=== PATIENT | female | born 1955 | race Caucasian/White ===

== ENCOUNTER 2016-12-20 18:07 | Inpatient (IN) | payer OTHER ==
[~2016-12-20] VITALS: Ht 157.5 cm; Wt 100.2 kg
[~2016-12-20 18:07] MED LIST: CARV-39 PO; GLYB5TAB3 PO; HYDR-3240 PO; LORSARTAN PO; LOSA1TAB16 PO; OXYC1TAB9 PO; SITA1TBM7 PO; SULF1TAB24 PO; TIZA2CAP PO; Will bring list DOS; [UNRECOGNIZED DRUG - OTHER]; [UNRECOGNIZED DRUG - OTHER] PO; [UNRECOGNIZED DRUG - OTHER] PO; [UNRECOGNIZED DRUG - OTHER] PO
[2016-12-20 19:07] LABS: HEMOGLOBIN 10.5 g/dL (11.7-16.4)
[2016-12-20 19:21] LABS: IS PT STATUS REG ER OR PRE ER? YES
[2016-12-20] MEDS ORDERED: FURO-92 PO (19:31)
[2016-12-20] MEDS ORDERED: GLYB5TAB3 PO (19:31)
[2016-12-20] MEDS ORDERED: LOSA100T6 PO (19:31)
[2016-12-20] MEDS ORDERED: [UNRECOGNIZED DRUG - CODE] PO (19:31)
[2016-12-20] MEDS ORDERED: SODI650T PO (19:31)
[2016-12-20 19:59] LABS: BLOOD UREA NITROGEN 50 mg/dL (7-18)
[2016-12-20] MEDS ORDERED: SODIUM CHLORIDE 0.9% 1,000 ML IV ONE (20:53)
[2016-12-20] MEDS ORDERED: ONDANSETRON 2MG/ML, 2ML IVPush PRN (21:00)
[2016-12-20 22:21] VITALS: BP 160/67
[2016-12-20] MEDS ORDERED: FUROSEMIDE 40 MG/4 ML IV ONE (22:30)
[2016-12-20] MEDS: GlyBURIDE 5 MG TABLET PO SCH (22:30)
[2016-12-20] MEDS ORDERED: GUAIFENESIN/DM 200-20MG, 10ML UDC PO PRN (22:30)
[2016-12-20] MEDS ORDERED: MORPHINE SULFATE 4 MG/ML, 1ML IVPush PRN (22:30)
[2016-12-20] MEDS ORDERED: LABETALOL 5MG/ML, 20ML IV PRN (22:30)
[2016-12-20] MEDS: INSULIN ASPART 100 UNITS/ML, PEN SQ-INSULIN SCH (22:30)
[2016-12-21] MEDS: HEPARIN 5,000 UNITS/ML, 1ML SQ SCH ×3 (00:17→16:05)
[2016-12-21] MEDS: SODIUM BICARBONATE 650 MG TABLET PO SCH ×3 (00:22→21:28)
[2016-12-21] MEDS: CARVEDILOL 25 MG TABLET PO SCH ×3 (00:23→21:27)
[2016-12-21] MEDS: FAMOTIDINE 20 MG TABLET PO SCH ×2 (00:23→07:49)
[2016-12-21 01:23] VITALS: BP 159/70
[2016-12-21 06:20] LABS: HEMOGLOBIN 8.9 g/dL (11.7-16.4)
[2016-12-21 06:29] LABS: BLOOD UREA NITROGEN 51 mg/dL (7-18)
[2016-12-21] MEDS: INSULIN ASPART 100 UNITS/ML, PEN SQ-INSULIN SCH ×4 (07:00→21:00)
[2016-12-21 07:45] VITALS: BP 159/73
[2016-12-21] MEDS: LOSARTAN 50MG TABLET PO SCH (07:48)
[2016-12-21] MEDS: GlyBURIDE 5 MG TABLET PO SCH ×2 (07:49→21:27)
[2016-12-21] MEDS: AMLODIPINE 5 MG TABLET PO SCH (07:49)
[2016-12-21] MEDS: HYDROcodone/APAP 5/325 TABLET PO PRN (07:57)
[2016-12-21] MEDS ORDERED: FUROSEMIDE 40 MG TABLET PO SCH (09:00)
[2016-12-21] MEDS: ONDANSETRON 2MG/ML, 2ML IVP PRN (11:30)
[2016-12-21 11:37] VITALS: BP 159/79
[2016-12-21 13:54] VITALS: BP 148/80
[2016-12-21 15:14] LABS: PTH INTACT INTERPRETATION ** Comment **
[2016-12-21 15:39] LABS: PARATHYROID HORMONE INTACT 274.2 pg/mL (14-72)
[2016-12-21] MEDS: ACETAMINOPHEN 325 MG TABLET PO PRN (16:04)
[2016-12-21 20:01] VITALS: BP 149/73
[2016-12-21] MEDS: ATORVASTATIN 20 MG TABLET PO SCH (21:28)
[2016-12-22 02:10] VITALS: BP 156/67
[2016-12-22 05:42] LABS: HEMOGLOBIN 8.8 g/dL (11.7-16.4)
[2016-12-22 05:55] LABS: ASPARTATE AMINO TRANSFERASE 8 U/L (15-37); BLOOD UREA NITROGEN 53 mg/dL (7-18)
[2016-12-22] MEDS: INSULIN ASPART 100 UNITS/ML, PEN SQ-INSULIN SCH ×4 (07:00→20:18)
[2016-12-22 07:47] VITALS: BP 146/64
[2016-12-22] MEDS: GlyBURIDE 5 MG TABLET PO SCH (09:00)
[2016-12-22] MEDS ORDERED: CIMETIDINE 200 MG TABLET PO SCH (09:00)
[2016-12-22] MEDS: LOSARTAN 50MG TABLET PO SCH (09:31)
[2016-12-22] MEDS: CARVEDILOL 25 MG TABLET PO SCH ×2 (09:31→20:16)
[2016-12-22] MEDS: HEPARIN 5,000 UNITS/ML, 1ML SQ SCH ×3 (09:31→17:22)
[2016-12-22] MEDS: SODIUM BICARBONATE 650 MG TABLET PO SCH ×2 (09:32→20:15)
[2016-12-22] MEDS: AMLODIPINE 5 MG TABLET PO SCH (09:32)
[2016-12-22] MEDS: FUROSEMIDE 80 MG TABLET PO SCH (09:32)
[2016-12-22] MEDS: ACETAMINOPHEN 325 MG TABLET PO PRN (09:52)
[2016-12-22 13:15] VITALS: BP 146/74
[2016-12-22] MEDS ORDERED: DARBEPOETIN 60 MCG/ML SQ SCH (13:30)
[2016-12-22] MEDS: ERGOCALCIFEROL 50,000 UNIT CAPSULE PO SCH (16:20)
[2016-12-22] MEDS: IRON SUCROSE COMPLEX 100MG/5ML IV SCH (16:24)
[2016-12-22] MEDS: CIMETIDINE 400 MG TABLET PO SCH (17:22)
[2016-12-22] MEDS: ATORVASTATIN 20 MG TABLET PO SCH (20:16)
[2016-12-22 20:19] VITALS: BP 134/70
[2016-12-23 02:45] VITALS: BP 151/73
[2016-12-23 05:31] LABS: HEMOGLOBIN 8.7 g/dL (11.7-16.4)
[2016-12-23 05:46] LABS: BLOOD UREA NITROGEN 58 mg/dL (7-18)
[2016-12-23] MEDS: CIMETIDINE 400 MG TABLET PO SCH (06:00)
[2016-12-23] MEDS: INSULIN ASPART 100 UNITS/ML, PEN SQ-INSULIN SCH ×4 (07:00→22:13)
[2016-12-23 08:02] VITALS: BP 160/69
[2016-12-23] MEDS: CARVEDILOL 25 MG TABLET PO SCH ×2 (08:28→22:12)
[2016-12-23] MEDS: HEPARIN 5,000 UNITS/ML, 1ML SQ SCH ×3 (08:28→17:26)
[2016-12-23] MEDS: AMLODIPINE 5 MG TABLET PO SCH (08:29)
[2016-12-23] MEDS: MULTIVITAMIN 1 TABLET PO SCH (08:29)
[2016-12-23] MEDS: SODIUM BICARBONATE 650 MG TABLET PO SCH ×2 (08:29→22:12)
[2016-12-23] MEDS: CALCITRIOL 0.25 MCG CAPSULE PO SCH (08:30)
[2016-12-23] MEDS: FUROSEMIDE 80 MG TABLET PO SCH (08:30)
[2016-12-23] MEDS: LOSARTAN 50MG TABLET PO SCH (08:30)
[2016-12-23] MEDS: ATORVASTATIN 20 MG TABLET PO SCH (08:30)
[2016-12-23] MEDS: HYDROcodone/APAP 5/325 TABLET PO PRN (11:59)
[2016-12-23 13:06] VITALS: BP 159/73
[2016-12-23 14:07] LABS: UR ALBUMIN 54.3 % (.); UR ALPHA-2-GLOBULIN 10.3 % (.); UR BETA GLOBULIN 14.3 % (.); UR GAMMA GLOBULIN 17.1 % (.); UR M-SPIKE % Not Observed % (Not Observed)
[2016-12-23 14:07] LABS: ALBUMIN 2.8 g/dL (2.9-4.4); ALPHA-1-GLOBULIN 0.2 g/dL (0.0-0.4); GAMMA GLOBULIN 0.8 g/dL (0.4-1.8); PROTEIN TOTAL 5.5 g/dL (6.0-8.5)
[2016-12-23] MEDS: IRON SUCROSE COMPLEX 100MG/5ML IV SCH (14:15)
[2016-12-23 17:36] LABS: CREATININE CLEARANCE,URINE 8.1 (70.0-140.0)
[2016-12-23 18:46] VITALS: BP 158/83
[2016-12-23] MEDS: ACETAMINOPHEN 325 MG TABLET PO PRN (22:17)
[2016-12-24 05:37] VITALS: BP_SYST 148; BP_SYST 165; BP_DIAS 73; BP_DIAS 90
[2016-12-24 06:12] LABS: HEMOGLOBIN 9.6 g/dL (11.7-16.4)
[2016-12-24 06:23] LABS: BLOOD UREA NITROGEN 56 mg/dL (7-18)
[2016-12-24] MEDS: INSULIN ASPART 100 UNITS/ML, PEN SQ-INSULIN SCH ×4 (07:00→20:47)
[2016-12-24 08:17] VITALS: BP 160/73
[2016-12-24] MEDS: SODIUM BICARBONATE 650 MG TABLET PO SCH ×2 (09:12→20:46)
[2016-12-24] MEDS: CALCITRIOL 0.25 MCG CAPSULE PO SCH (09:12)
[2016-12-24] MEDS: CARVEDILOL 25 MG TABLET PO SCH ×2 (09:13→20:46)
[2016-12-24] MEDS: ATORVASTATIN 20 MG TABLET PO SCH (09:13)
[2016-12-24] MEDS: AMLODIPINE 5 MG TABLET PO SCH (09:13)
[2016-12-24] MEDS: LOSARTAN 50MG TABLET PO SCH (09:13)
[2016-12-24] MEDS: FUROSEMIDE 80 MG TABLET PO SCH (09:13)
[2016-12-24] MEDS: MULTIVITAMIN 1 TABLET PO SCH (09:13)
[2016-12-24] MEDS: HEPARIN 5,000 UNITS/ML, 1ML SQ SCH ×4 (09:14→23:52)
[2016-12-24] MEDS: IRON SUCROSE COMPLEX 100MG/5ML IV SCH (13:30)
[2016-12-24 14:09] VITALS: BP 155/80
[2016-12-24 20:05] VITALS: BP 164/72
[2016-12-24] MEDS: HYDROcodone/APAP 5/325 TABLET PO PRN ×2 (20:46→23:56)
[2016-12-25 05:08] VITALS: BP 150/62
[2016-12-25 05:17] LABS: HEMOGLOBIN 9.4 g/dL (11.7-16.4)
[2016-12-25 05:28] LABS: BLOOD UREA NITROGEN 65 mg/dL (7-18)
[2016-12-25] MEDS: INSULIN ASPART 100 UNITS/ML, PEN SQ-INSULIN SCH ×4 (05:41→20:38)
[2016-12-25] MEDS: HEPARIN 5,000 UNITS/ML, 1ML SQ SCH ×2 (08:00→17:06)
[2016-12-25] MEDS ORDERED: GLYCOPYRROLATE 0.2MG/1ML ONE (08:30)
[2016-12-25] MEDS ORDERED: ONDANSETRON 2MG/ML, 2ML ONE (08:30)
[2016-12-25] MEDS ORDERED: CEFAZOLIN 1,000 MG ONE (08:30)
[2016-12-25] MEDS ORDERED: NEOSTIGMINE 1 MG/ML, 10ML ONE (08:30)
[2016-12-25] MEDS ORDERED: ROCURONIUM 10 MG/ML ONE (08:30)
[2016-12-25] MEDS ORDERED: PROPOFOL 10 MG/ML, 20ML ONE (08:30)
[2016-12-25] MEDS: MULTIVITAMIN 1 TABLET PO SCH (09:00)
[2016-12-25] MEDS: FUROSEMIDE 80 MG TABLET PO SCH (09:00)
[2016-12-25] MEDS: LOSARTAN 50MG TABLET PO SCH (09:00)
[2016-12-25] MEDS: AMLODIPINE 5 MG TABLET PO SCH (09:00)
[2016-12-25] MEDS: CARVEDILOL 25 MG TABLET PO SCH ×2 (09:00→20:38)
[2016-12-25] MEDS: SODIUM BICARBONATE 650 MG TABLET PO SCH ×2 (09:00→20:39)
[2016-12-25] MEDS: CALCITRIOL 0.25 MCG CAPSULE PO SCH (09:00)
[2016-12-25] MEDS ORDERED: hydrALAzine 20 MG/ML, 1ML IV PRN (11:00)
[2016-12-25] MEDS ORDERED: HYDROmorphone 1 MG/ML, 1ML IV PRN (11:00)
[2016-12-25] MEDS ORDERED: PROMETHAZINE 25 MG/ML, 1ML IV PRN (11:00)
[2016-12-25] MEDS ORDERED: ONDANSETRON 2MG/ML, 2ML IVPush PRN (11:00)
[2016-12-25] MEDS ORDERED: OXYcodone 5 MG/5 ML ORAL.SOL UDC PO PRN (11:00)
[2016-12-25] MEDS ORDERED: MEPERIDINE/PF 25MG/0.5ML IVPush PRN (11:00)
[2016-12-25] MEDS ORDERED: FENTANYL PF 100 MCG/2ML IV PRN (11:00)
[2016-12-25] MEDS ORDERED: LABETALOL 5MG/ML, 20ML IV PRN (11:00)
[2016-12-25] MEDS: ONDANSETRON 2MG/ML, 2ML IVP PRN ×2 (11:25→17:05)
[2016-12-25 13:00] VITALS: BP 127/75
[2016-12-25] MEDS: IRON SUCROSE COMPLEX 100MG/5ML IV SCH (17:05)
[2016-12-25 18:48] VITALS: BP 134/76
[2016-12-25 18:52] VITALS: BP 133/60
[2016-12-25 20:00] VITALS: BP 126/72
[2016-12-25] MEDS: ATORVASTATIN 20 MG TABLET PO SCH (20:38)
[2016-12-25] MEDS: TRAZODONE 50MG TABLET PO PRN (20:39)
[2016-12-26] MEDS: HEPARIN 5,000 UNITS/ML, 1ML SQ SCH ×3 (00:21→16:46)
[2016-12-26] MEDS: HYDROcodone/APAP 5/325 TABLET PO PRN (01:33)
[2016-12-26 02:30] VITALS: BP 130/75
[2016-12-26 04:50] VITALS: BP 139/66
[2016-12-26] MEDS: INSULIN ASPART 100 UNITS/ML, PEN SQ-INSULIN SCH ×4 (07:00→20:24)
[2016-12-26 07:11] VITALS: BP 123/56
[2016-12-26] MEDS: ONDANSETRON 2MG/ML, 2ML IVP PRN ×2 (08:28→12:14)
[2016-12-26] MEDS: CARVEDILOL 25 MG TABLET PO SCH ×2 (12:36→20:39)
[2016-12-26] MEDS: FUROSEMIDE 80 MG TABLET PO SCH (12:38)
[2016-12-26] MEDS: LOSARTAN 50MG TABLET PO SCH (12:38)
[2016-12-26] MEDS: MULTIVITAMIN 1 TABLET PO SCH (12:39)
[2016-12-26] MEDS: CALCITRIOL 0.25 MCG CAPSULE PO SCH (12:39)
[2016-12-26] MEDS: SODIUM BICARBONATE 650 MG TABLET PO SCH ×2 (12:39→20:39)
[2016-12-26] MEDS: AMLODIPINE 5 MG TABLET PO SCH (12:39)
[2016-12-26] MEDS: IRON SUCROSE COMPLEX 100MG/5ML IV SCH (13:47)
[2016-12-26 14:35] VITALS: BP 141/56
[2016-12-26 20:17] VITALS: BP 172/69
[2016-12-26] MEDS: ATORVASTATIN 20 MG TABLET PO SCH (20:39)
[2016-12-26] MEDS: TRAZODONE 50MG TABLET PO PRN (20:39)
[2016-12-27] MEDS: HEPARIN 5,000 UNITS/ML, 1ML SQ SCH ×4 (00:38→23:19)
[2016-12-27 00:39] VITALS: BP 158/74
[2016-12-27 05:43] LABS: BLOOD UREA NITROGEN 25 mg/dL (7-18)
[2016-12-27] MEDS: INSULIN ASPART 100 UNITS/ML, PEN SQ-INSULIN SCH ×4 (07:00→20:23)
[2016-12-27 07:06] VITALS: BP 156/54
[2016-12-27] MEDS: CARVEDILOL 25 MG TABLET PO SCH ×2 (08:12→20:22)
[2016-12-27] MEDS: MULTIVITAMIN 1 TABLET PO SCH (08:12)
[2016-12-27] MEDS: CALCITRIOL 0.25 MCG CAPSULE PO SCH (08:12)
[2016-12-27] MEDS: AMLODIPINE 5 MG TABLET PO SCH (08:12)
[2016-12-27] MEDS: FUROSEMIDE 80 MG TABLET PO SCH (08:12)
[2016-12-27] MEDS: LOSARTAN 50MG TABLET PO SCH (08:12)
[2016-12-27] MEDS: SODIUM BICARBONATE 650 MG TABLET PO SCH ×2 (08:12→20:22)
[2016-12-27 09:00] LABS: HEP B SURF. AB 79.6 mIU/mL (0.0-10.0)
[2016-12-27] MEDS: ACETAMINOPHEN 325 MG TABLET PO PRN (12:57)
[2016-12-27 13:06] LABS: UR ALBUMIN 55.2 % (.); UR ALPHA-1-GLOBULIN 7.7 % (.); UR ALPHA-2-GLOBULIN 7.7 % (.); UR GAMMA GLOBULIN 11.4 % (.); UR M-SPIKE % Not Observed % (Not Observed); UR PROTEIN 24HR 5453.3 mg/24 hr (30.0-150.0)
[2016-12-27 15:26] VITALS: BP 127/68
[2016-12-27 20:00] VITALS: BP 152/72
[2016-12-27] MEDS: TRAZODONE 50MG TABLET PO PRN (20:22)
[2016-12-27] MEDS: ATORVASTATIN 20 MG TABLET PO SCH (20:22)
[2016-12-27] MEDS: HYDROcodone/APAP 5/325 TABLET PO PRN (23:17)
[2016-12-28 02:00] VITALS: BP 146/67
[2016-12-28 08:00] VITALS: BP 149/63
[2016-12-28] MEDS: INSULIN ASPART 100 UNITS/ML, PEN SQ-INSULIN SCH ×4 (08:06→21:15)
[2016-12-28] MEDS: HEPARIN 5,000 UNITS/ML, 1ML SQ SCH ×2 (08:06→16:58)
[2016-12-28] MEDS: SODIUM BICARBONATE 650 MG TABLET PO SCH ×2 (08:07→21:14)
[2016-12-28] MEDS: MULTIVITAMIN 1 TABLET PO SCH (08:07)
[2016-12-28] MEDS: CALCITRIOL 0.25 MCG CAPSULE PO SCH (08:07)
[2016-12-28 08:14] LABS: HEMOGLOBIN 9.3 g/dL (11.7-16.4)
[2016-12-28 08:24] LABS: BLOOD UREA NITROGEN 18 mg/dL (7-18)
[2016-12-28] MEDS: CARVEDILOL 25 MG TABLET PO SCH ×2 (08:48→21:14)
[2016-12-28] MEDS: FUROSEMIDE 80 MG TABLET PO SCH (08:49)
[2016-12-28] MEDS: LOSARTAN 50MG TABLET PO SCH (08:49)
[2016-12-28] MEDS: AMLODIPINE 5 MG TABLET PO SCH (08:49)
[2016-12-28] MEDS ORDERED: ERGO500017 PO (13:13)
[2016-12-28] MEDS ORDERED: FURO80TA3 PO (13:13)
[2016-12-28] MEDS ORDERED: CALC0.25 PO (13:13)
[2016-12-28] MEDS: ACETAMINOPHEN 325 MG TABLET PO PRN (13:53)
[2016-12-28 14:00] VITALS: BP 152/69
[2016-12-28 20:53] VITALS: BP 116/66
[2016-12-28] MEDS: TRAZODONE 50MG TABLET PO PRN (21:14)
[2016-12-28] MEDS: ATORVASTATIN 20 MG TABLET PO SCH (21:14)
[2016-12-29] MEDS: HEPARIN 5,000 UNITS/ML, 1ML SQ SCH ×3 (01:00→17:03)
[2016-12-29 02:07] VITALS: BP 128/67
[2016-12-29 05:58] LABS: BLOOD UREA NITROGEN 14 mg/dL (7-18)
[2016-12-29 07:31] VITALS: BP 167/74
[2016-12-29] MEDS: SODIUM BICARBONATE 650 MG TABLET PO SCH ×2 (07:51→22:40)
[2016-12-29] MEDS: FUROSEMIDE 80 MG TABLET PO SCH (07:52)
[2016-12-29] MEDS: CARVEDILOL 25 MG TABLET PO SCH ×2 (07:52→22:40)
[2016-12-29] MEDS: LOSARTAN 50MG TABLET PO SCH (07:52)
[2016-12-29] MEDS: AMLODIPINE 5 MG TABLET PO SCH (07:52)
[2016-12-29] MEDS: INSULIN ASPART 100 UNITS/ML, PEN SQ-INSULIN SCH ×4 (07:53→22:41)
[2016-12-29] MEDS: MULTIVITAMIN 1 TABLET PO SCH (07:57)
[2016-12-29] MEDS: CALCITRIOL 0.25 MCG CAPSULE PO SCH (07:57)
[2016-12-29] MEDS: ACETAMINOPHEN 325 MG TABLET PO PRN ×2 (07:57→13:49)
[2016-12-29] MEDS ORDERED: DARBEPOETIN 60 MCG/ML SQ SCH (12:13)
[2016-12-29] MEDS: ERGOCALCIFEROL 50,000 UNIT CAPSULE PO SCH (13:48)
[2016-12-29 16:57] VITALS: BP 157/63
[2016-12-29 21:27] VITALS: BP 152/78
[2016-12-29] MEDS: ATORVASTATIN 20 MG TABLET PO SCH (22:40)
[2016-12-30] MEDS: TRAZODONE 50MG TABLET PO PRN (00:14)
[2016-12-30] MEDS: HEPARIN 5,000 UNITS/ML, 1ML SQ SCH ×2 (00:22→09:00)
[2016-12-30 02:00] VITALS: BP 161/74
[2016-12-30 06:12] LABS: BLOOD UREA NITROGEN 27 mg/dL (7-18)
[2016-12-30 06:47] VITALS: BP 157/66
[2016-12-30] MEDS: INSULIN ASPART 100 UNITS/ML, PEN SQ-INSULIN SCH ×2 (07:32→11:00)
[2016-12-30] MEDS: AMLODIPINE 5 MG TABLET PO SCH (09:00)
[2016-12-30] MEDS: CARVEDILOL 25 MG TABLET PO SCH (09:00)
[2016-12-30] MEDS: LOSARTAN 50MG TABLET PO SCH (09:00)
[2016-12-30] MEDS: FUROSEMIDE 80 MG TABLET PO SCH (09:00)
[2016-12-30 12:55] VITALS: BP 149/76
[2016-12-30] MEDS: SODIUM BICARBONATE 650 MG TABLET PO SCH (13:32)
[2016-12-30] MEDS: MULTIVITAMIN 1 TABLET PO SCH (13:32)
[2016-12-30] MEDS: CALCITRIOL 0.25 MCG CAPSULE PO SCH (13:32)
== END 2016-12-30 15:30 | disposition home or self-care (01) | DRG 674 ==
LOC: ED 19:21 → EDIP 20:53 → 3NE 22:16 → 4EST 12-25 08:46 → DCLOUNGE 12-30 14:56
PROVIDERS: ADMIT Internal Medicine
PROC: 0JH60XZ Insertion of Tunneled Vascular Access Device into Chest Subcutaneous Tissue and Fascia, Open Approach (ICD-10-PCS; 2016-12-25)
PROC: 02H633Z Insertion of Infusion Device into Right Atrium, Percutaneous Approach (ICD-10-PCS; 2016-12-25)
PROC: B2141ZZ Fluoroscopy of Right Heart using Low Osmolar Contrast (ICD-10-PCS; 2016-12-25)
PROC: 03170ZD Bypass Right Brachial Artery to Upper Arm Vein, Open Approach (ICD-10-PCS; principal; 2016-12-25 08:30)
PROC: 5A1D60Z (ICD-10-PCS; 2016-12-26)
DX: N17.9 Acute kidney failure, unspecified (principal); I13.2 Hypertensive heart and chronic kidney disease with heart failure and with stage 5 chronic kidney disease, or end stage renal disease; E11.65 Type 2 diabetes mellitus with hyperglycemia; E11.22 Type 2 diabetes mellitus with diabetic chronic kidney disease; F17.210 Nicotine dependence, cigarettes, uncomplicated; D63.1 Anemia in chronic kidney disease; E11.21 Type 2 diabetes mellitus with diabetic nephropathy; E11.40 Type 2 diabetes mellitus with diabetic neuropathy, unspecified; E55.9 Vitamin D deficiency, unspecified; G47.00 Insomnia, unspecified; D50.9 Iron deficiency anemia, unspecified; N25.0 Renal osteodystrophy; N18.6 End stage renal disease; E11.649 Type 2 diabetes mellitus with hypoglycemia without coma; I80.8 Phlebitis and thrombophlebitis of other sites; Z84.1 Family history of disorders of kidney and ureter; Z98.890 Other specified postprocedural states; Z79.84 Long term (current) use of oral hypoglycemic drugs; Z82.49 Family history of ischemic heart disease and other diseases of the circulatory system; Z83.3 Family history of diabetes mellitus
CPT/HCPCS: 36415; 71010; 76000; 76770; 80048; 80053; 80069; 81001; 81050; 82040; 82306; 82310; 82436; 82570; 82575; 82728; 82962; 83036; 83540; 83550; 83735; 83970; 84100; 84132; 84133; 84155; 84156; 84165; 84166; 84300; 84443; 84484; 84550; 85025; 85610; 85730; 86480; 86704; 86706; 86708; 86803; 87340; 93005; 93306; C1729; J0690; J0881; J1644; J1756; J1815; J1940; J2250; J2405; J2704; J2710; J2720; J3010; J3490; C1751; G0365; J2440

== ENCOUNTER → 2017-03-28 | Outpatient (CLI) | payer OTHER ==
[~2017-03-28] MED LIST changes: +BACITRACIN 50,000 UNIT ONE; +BUPIVACAINE/PF-EPI 0.5% 1:200K ONE; +CALC0.25 PO; +ERGO500017 PO; +FENTANYL PF 250 MCG/5ML ONE; +FURO-92 PO; +FURO80TA3 PO; +HEPARIN 1,000 UNITS/ML, 10ML ONE; +HEPARIN 5,000 UNITS/ML, 1ML ONE; +LOSA100T6 PO; +MIDAZOLAM 1 MG/ML, 2ML ONE; +ONDANSETRON 2MG/ML, 2ML ONE; +OXYcodone 5 MG/5 ML ORAL.SOL UDC ONE; +PAPAVERINE 30 MG/ML, 2ML ONE; +PROTAMINE SULFATE 10 MG/ML, 5ML ONE; +SODI650T PO; +THROMBIN 20,000 UNIT VIAL TP ONE; +[UNRECOGNIZED DRUG - CODE] PO
== END | disposition home or self-care (01) ==
LOC: CFH 09:00
PROVIDERS: ATTEND Family Medicine
DX: Z02.9 Encounter for administrative examinations, unspecified (principal)
CPT/HCPCS: J1644; J2250; J2720; J3010; J2440

== ENCOUNTER 2017-04-07 08:19 | Inpatient (IN) | payer OTHER ==
[~2017-04-07] VITALS: Ht 152.4 cm; Wt 100.0 kg
[~2017-04-07 08:19] MED LIST changes: -BACITRACIN 50,000 UNIT ONE; -BUPIVACAINE/PF-EPI 0.5% 1:200K ONE; -FENTANYL PF 250 MCG/5ML ONE; -HEPARIN 1,000 UNITS/ML, 10ML ONE; -HEPARIN 5,000 UNITS/ML, 1ML ONE; -MIDAZOLAM 1 MG/ML, 2ML ONE; -ONDANSETRON 2MG/ML, 2ML ONE; -OXYcodone 5 MG/5 ML ORAL.SOL UDC ONE; -PAPAVERINE 30 MG/ML, 2ML ONE; -PROTAMINE SULFATE 10 MG/ML, 5ML ONE; -THROMBIN 20,000 UNIT VIAL TP ONE
[2017-04-07] MEDS ORDERED: SODIUM CHLORIDE 0.9% 1,000ML IVBOLUS ONE (09:00)
[2017-04-07] MEDS ORDERED: SODIUM CHLORIDE FLUSH 10ML SYR IVF ONE (09:00)
[2017-04-07] MEDS ORDERED: ACETAMINOPHEN 500 MG TABLET PO ONE (09:00)
[2017-04-07 09:24] LABS: ASPARTATE AMINO TRANSFERASE 14 U/L (15-37); BLOOD UREA NITROGEN 26 mg/dL (7-18)
[2017-04-07] MEDS ORDERED: ONDANSETRON 2MG/ML, 2ML ONE (10:13)
[2017-04-07] MEDS ORDERED: ONDANSETRON 2MG/ML, 2ML IVPush PRN ×2 (10:30→15:30)
[2017-04-07] MEDS ORDERED: CEFTRIAXONE 1,000 MG in SODIUM CHLORIDE 0.9% 50 ML IV ONE (14:05)
[2017-04-07] MEDS ORDERED: BISACODYL 10 MG SUPP PR PRN (15:30)
[2017-04-07] MEDS ORDERED: DOCUSATE 100 MG CAPSULE PO PRN (15:30)
[2017-04-07] MEDS ORDERED: LABETALOL 5MG/ML, 20ML IVPush PRN (15:30)
[2017-04-07] MEDS ORDERED: POLYETHYLENE GLYCOL 17 GM PACKET PO PRN (15:30)
[2017-04-07] MEDS ORDERED: PHARMACY MAY ADJ FOR RENAL FX MC PRN (15:30)
[2017-04-07] MEDS ORDERED: ONDANSETRON ODT 4 MG PO PRN (15:30)
[2017-04-07] MEDS ORDERED: ACETAMINOPHEN 325 MG TABLET PO PRN (15:30)
[2017-04-07] MEDS ORDERED: DEXTROSE 4 GM TAB.CHEW PO PRN (16:00)
[2017-04-07] MEDS ORDERED: GLUCAGON 1 MG IM PRN (16:00)
[2017-04-07] MEDS ORDERED: DEXTROSE 50%, 50ML SYRINGE IVPush PRN (16:00)
[2017-04-07 17:05] VITALS: BP 120/68
[2017-04-07] MEDS: HEPARIN 5,000 UNITS/ML, 1ML SQ SCH (18:11)
[2017-04-07 20:41] VITALS: BP 110/56
[2017-04-07] MEDS: INSULIN REGULAR 100 UNITS/ML, 3ML VIAL SQ-INSULIN SCH ×2 (21:00→22:49)
[2017-04-07] MEDS: SODIUM CHLORIDE FLUSH 10ML SYR IVF SCH (22:45)
[2017-04-07] MEDS: CARVEDILOL 25 MG TABLET PO SCH (22:45)
[2017-04-08 01:55] VITALS: BP 113/65
[2017-04-08] MEDS: HEPARIN 5,000 UNITS/ML, 1ML SQ SCH ×3 (02:09→22:15)
[2017-04-08 06:47] LABS: ASPARTATE AMINO TRANSFERASE 10 U/L (15-37); BLOOD UREA NITROGEN 44 mg/dL (7-18)
[2017-04-08 07:30] VITALS: BP 102/66
[2017-04-08] MEDS: INSULIN REGULAR 100 UNITS/ML, 3ML VIAL SQ-INSULIN SCH ×4 (07:39→22:15)
[2017-04-08] MEDS: CARVEDILOL 25 MG TABLET PO SCH ×2 (07:40→22:15)
[2017-04-08] MEDS ORDERED: MEROPENEM 1 GM in SODIUM CHLORIDE 0.9% 100 ML IV SCH (08:00)
[2017-04-08] MEDS ORDERED: ATORVASTATIN PO SCH (09:00)
[2017-04-08] MEDS: SODIUM CHLORIDE FLUSH 10ML SYR IVF SCH ×2 (09:00→21:00)
[2017-04-08] MEDS ORDERED: LOSARTAN POTASSIUM 100 MG PO SCH (09:00)
[2017-04-08] MEDS ORDERED: AMLODIPINE PO SCH (09:00)
[2017-04-08] MEDS: ATORVASTATIN 20 MG TABLET PO SCH (10:43)
[2017-04-08] MEDS: AMLODIPINE 5 MG TABLET PO SCH (10:43)
[2017-04-08 13:59] VITALS: BP 102/62
[2017-04-08] MEDS ORDERED: CEFTRIAXONE PMX 1GM/50ML 50 ML IV SCH (14:00)
[2017-04-08] MEDS: MEROPENEM 500 MG in SODIUM CHLORIDE 0.9% 100 ML IV SCH (17:26)
[2017-04-08 20:18] VITALS: BP 109/64
[2017-04-08] MEDS: MELATONIN 5 MG TABLET PO PRN (22:24)
[2017-04-09 02:00] VITALS: BP 115/63
[2017-04-09 06:47] VITALS: BP 116/64
[2017-04-09 07:17] LABS: BLOOD UREA NITROGEN 60 mg/dL (7-18)
[2017-04-09 07:21] LABS: ASPARTATE AMINO TRANSFERASE 10 U/L (15-37)
[2017-04-09] MEDS: INSULIN REGULAR 100 UNITS/ML, 3ML VIAL SQ-INSULIN SCH ×4 (08:37→21:00)
[2017-04-09] MEDS: HEPARIN 5,000 UNITS/ML, 1ML SQ SCH ×2 (09:00→17:00)
[2017-04-09] MEDS: CARVEDILOL 25 MG TABLET PO SCH ×2 (09:23→21:00)
[2017-04-09] MEDS: AMLODIPINE 5 MG TABLET PO SCH (09:23)
[2017-04-09] MEDS: SODIUM CHLORIDE FLUSH 10ML SYR IVF SCH ×2 (09:23→21:00)
[2017-04-09] MEDS: ATORVASTATIN 20 MG TABLET PO SCH (09:23)
[2017-04-09] MEDS: LOSARTAN 50MG TABLET PO SCH (09:28)
[2017-04-09 13:14] VITALS: BP 119/67
[2017-04-09] MEDS: MEROPENEM 500 MG in SODIUM CHLORIDE 0.9% 100 ML IV SCH (17:15)
[2017-04-09 18:57] VITALS: BP 114/66
[2017-04-09] MEDS: MELATONIN 5 MG TABLET PO PRN (21:16)
[2017-04-10 00:34] VITALS: BP 130/79
[2017-04-10] MEDS: HEPARIN 5,000 UNITS/ML, 1ML SQ SCH ×3 (01:00→21:06)
[2017-04-10 05:29] LABS: BLOOD UREA NITROGEN 69 mg/dL (7-18)
[2017-04-10] MEDS: INSULIN REGULAR 100 UNITS/ML, 3ML VIAL SQ-INSULIN SCH ×4 (08:10→21:07)
[2017-04-10 08:35] VITALS: BP 121/74
[2017-04-10] MEDS: ATORVASTATIN 20 MG TABLET PO SCH (10:11)
[2017-04-10] MEDS: AMLODIPINE 5 MG TABLET PO SCH (10:11)
[2017-04-10] MEDS: LOSARTAN 50MG TABLET PO SCH (10:11)
[2017-04-10] MEDS: CARVEDILOL 25 MG TABLET PO SCH ×2 (10:11→21:07)
[2017-04-10] MEDS: SODIUM CHLORIDE FLUSH 10ML SYR IVF SCH ×2 (10:12→21:06)
[2017-04-10 15:46] VITALS: BP 136/60
[2017-04-10 19:47] VITALS: BP 138/81
[2017-04-10] MEDS: MEROPENEM 500 MG in SODIUM CHLORIDE 0.9% 100 ML IV SCH (21:06)
[2017-04-10] MEDS: MELATONIN 5 MG TABLET PO PRN (21:07)
[2017-04-11] MEDS: HEPARIN 5,000 UNITS/ML, 1ML SQ SCH ×3 (01:00→16:47)
[2017-04-11 02:12] VITALS: BP 122/69
[2017-04-11 05:41] LABS: BLOOD UREA NITROGEN 38 mg/dL (7-18)
[2017-04-11 05:48] LABS: ASPARTATE AMINO TRANSFERASE 18 U/L (15-37); TOTAL IRON BINDING CAPACITY 224 mcg/dL (250-450)
[2017-04-11] MEDS: INSULIN REGULAR 100 UNITS/ML, 3ML VIAL SQ-INSULIN SCH ×4 (07:00→20:25)
[2017-04-11 07:05] VITALS: BP 158/68
[2017-04-11] MEDS: ATORVASTATIN 20 MG TABLET PO SCH (09:50)
[2017-04-11] MEDS: AMLODIPINE 5 MG TABLET PO SCH (09:50)
[2017-04-11] MEDS: SODIUM CHLORIDE FLUSH 10ML SYR IVF SCH ×2 (09:51→20:24)
[2017-04-11] MEDS: LOSARTAN 50MG TABLET PO SCH (09:51)
[2017-04-11] MEDS: CARVEDILOL 25 MG TABLET PO SCH ×2 (09:51→20:24)
[2017-04-11] MEDS: IRON SUCROSE COMPLEX 100MG/5ML IV SCH (12:08)
[2017-04-11 12:28] VITALS: BP 126/69
[2017-04-11] MEDS ORDERED: OMNIPAQUE 350 MG/ML, 100ML BOTTLE ONE (14:35)
[2017-04-11] MEDS: MEROPENEM 500 MG in SODIUM CHLORIDE 0.9% 100 ML IV SCH (16:47)
[2017-04-11 20:21] VITALS: BP 131/63
[2017-04-11] MEDS: MELATONIN 5 MG TABLET PO PRN (21:25)
[2017-04-12 00:41] VITALS: BP 113/68
[2017-04-12] MEDS: HEPARIN 5,000 UNITS/ML, 1ML SQ SCH ×3 (00:49→17:00)
[2017-04-12 06:18] LABS: ASPARTATE AMINO TRANSFERASE 17 U/L (15-37); BLOOD UREA NITROGEN 49 mg/dL (7-18)
[2017-04-12 09:00] VITALS: BP 134/66
[2017-04-12] MEDS: INSULIN REGULAR 100 UNITS/ML, 3ML VIAL SQ-INSULIN SCH ×4 (09:18→21:59)
[2017-04-12] MEDS ORDERED: LIDOCAINE 2%, 20ML ONE (12:24)
[2017-04-12 13:00] VITALS: BP 159/76
[2017-04-12] MEDS: CARVEDILOL 25 MG TABLET PO SCH ×2 (13:17→21:58)
[2017-04-12] MEDS: LOSARTAN 50MG TABLET PO SCH (13:17)
[2017-04-12] MEDS: ATORVASTATIN 20 MG TABLET PO SCH (13:17)
[2017-04-12] MEDS: SODIUM CHLORIDE FLUSH 10ML SYR IVF SCH ×2 (13:17→21:59)
[2017-04-12] MEDS: IRON SUCROSE COMPLEX 100MG/5ML IV SCH (13:18)
[2017-04-12] MEDS: AMLODIPINE 5 MG TABLET PO SCH (13:18)
[2017-04-12] MEDS ORDERED: MIDAZOLAM 1 MG/ML, 5ML ONE (16:30)
[2017-04-12] MEDS ORDERED: FENTANYL PF 100 MCG/2ML ONE (16:30)
[2017-04-12] MEDS: MEROPENEM 500 MG in SODIUM CHLORIDE 0.9% 100 ML IV SCH (17:00)
[2017-04-12 20:00] VITALS: BP 129/69
[2017-04-13 02:00] VITALS: BP 121/63
[2017-04-13] MEDS: HEPARIN 5,000 UNITS/ML, 1ML SQ SCH ×2 (04:23→11:25)
[2017-04-13 06:33] LABS: BLOOD UREA NITROGEN 34 mg/dL (7-18)
[2017-04-13] MEDS: CARVEDILOL 25 MG TABLET PO SCH (08:35)
[2017-04-13] MEDS: AMLODIPINE 5 MG TABLET PO SCH (08:35)
[2017-04-13] MEDS: ATORVASTATIN 20 MG TABLET PO SCH (08:35)
[2017-04-13] MEDS: INSULIN REGULAR 100 UNITS/ML, 3ML VIAL SQ-INSULIN SCH ×2 (08:35→11:25)
[2017-04-13] MEDS: SODIUM CHLORIDE FLUSH 10ML SYR IVF SCH (08:36)
[2017-04-13] MEDS: LOSARTAN 50MG TABLET PO SCH (08:36)
[2017-04-13 08:51] LABS: HEP B SURF. AB 74.3 mIU/mL (0.0-10.0)
[2017-04-13 09:03] VITALS: BP 131/52
[2017-04-13] MEDS: IRON SUCROSE COMPLEX 100MG/5ML IV SCH (11:25)
[2017-04-13] MEDS ORDERED: FERR325T20 PO (12:13)
[2017-04-13] MEDS ORDERED: CEFT1PIG IV (12:13)
[2017-04-13] MEDS ORDERED: MEROPENEM 500 MG in SODIUM CHLORIDE 0.9% 100 ML IV SCH (13:00)
[2017-04-14] MEDS ORDERED: MEROPENEM 500 MG in SODIUM CHLORIDE 0.9% 100 ML IV SCH (15:00)
== END 2017-04-13 14:35 | disposition home or self-care (01) | DRG 314 ==
LOC: ED 10:26 → EDIP 13:56 → 3NE 15:34 → 4EST 04-08 18:46 → DCLOUNGE 04-13 14:22
PROVIDERS: ADMIT Internal Medicine; ATTEND Family Medicine
PROC: 02PAX3Z Removal of Infusion Device from Heart, External Approach (ICD-10-PCS; principal; 2017-04-07)
DX: T80.211A Bloodstream infection due to central venous catheter, initial encounter (principal); A41.59 Other Gram-negative sepsis; N18.6 End stage renal disease; I12.0 Hypertensive chronic kidney disease with stage 5 chronic kidney disease or end stage renal disease; N39.0 Urinary tract infection, site not specified; E44.0 Moderate protein-calorie malnutrition; Z68.41 Body mass index [BMI] 40.0-44.9, adult; E11.21 Type 2 diabetes mellitus with diabetic nephropathy; D63.1 Anemia in chronic kidney disease; E11.22 Type 2 diabetes mellitus with diabetic chronic kidney disease; E66.9 Obesity, unspecified; F32.9 Major depressive disorder, single episode, unspecified; N25.0 Renal osteodystrophy; R19.7 Diarrhea, unspecified; B96.20 Unspecified Escherichia coli [E. coli] as the cause of diseases classified elsewhere; Y84.8 Other medical procedures as the cause of abnormal reaction of the patient, or of later complication, without mention of misadventure at the time of the procedure; Z82.49 Family history of ischemic heart disease and other diseases of the circulatory system; Z79.4 Long term (current) use of insulin; Z99.2 Dependence on renal dialysis; Z84.1 Family history of disorders of kidney and ureter; Z79.899 Other long term (current) drug therapy; Z90.49 Acquired absence of other specified parts of digestive tract; Z87.891 Personal history of nicotine dependence; Z79.84 Long term (current) use of oral hypoglycemic drugs
CPT/HCPCS: 36415; 36589; 71010; 71275; 74177; 77001; 80048; 80053; 80069; 81001; 82306; 82330; 82728; 82962; 83036; 83540; 83550; 83605; 83735; 83970; 84100; 84145; 84550; 85025; 85379; 86706; 87040; 87046; 87077; 87086; 87186; 87324; 87340; 89055; 93005; 96374; 99156; 99157; J0696; J1644; J1756; J1815; J2185; J2250; J2405; J3010; J3490; Q9967; J7030

== ENCOUNTER → 2017-09-26 | Outpatient (CLI) | payer OTHER ==
[~2017-09-26] MED LIST changes: +AMLO1TAB92 PO; +CEFT1PIG IV; +FERR325T18 PO; -LOSA1TAB16 PO; +LOSA1TAB19 PO; -[UNRECOGNIZED DRUG - CODE] PO
== END | disposition home or self-care (01) ==
LOC: CFH 10:53
PROVIDERS: ATTEND Family Medicine
DX: Z12.31 Encounter for screening mammogram for malignant neoplasm of breast (principal); M85.88 Other specified disorders of bone density and structure, other site
CPT/HCPCS: 77080; G0202

== ENCOUNTER → 2018-07-31 | Outpatient (CLI) | payer OTHER ==
[~2018-07-31] MED LIST changes: -LOSA100T6 PO; +LOSA100T7 PO; +OXYC-432 PO; -OXYC1TAB9 PO
== END | disposition home or self-care (01) ==
LOC: CFH 07:44
PROVIDERS: ATTEND Internal Medicine Cardiovascular Disease
DX: I10 Essential (primary) hypertension (principal)
CPT/HCPCS: 93306

== ENCOUNTER → 2019-10-03 | Outpatient (CLI) | payer OTHER ==
[~2019-10-03] MED LIST changes: +LOSA100T14 PO; -LOSA100T7 PO
== END | disposition home or self-care (01) ==
LOC: CFH 09:41
PROVIDERS: ATTEND Family Medicine
DX: Z12.31 Encounter for screening mammogram for malignant neoplasm of breast (principal)
CPT/HCPCS: 77067

== ENCOUNTER → 2019-10-11 | Outpatient (CLI) | payer OTHER | END | disposition home or self-care (01) | LOC: CFH 11:16 | PROVIDERS: ATTEND Family Medicine | DX: M85.88 Other specified disorders of bone density and structure, other site (principal); N95.8 Other specified menopausal and perimenopausal disorders | CPT/HCPCS: 77080 ==

== ENCOUNTER 2021-03-29 18:30 | Emergency (ER) | payer OTHER ==
[~2021-03-29] VITALS: Ht 152.4 cm; Wt 100.9 kg
[~2021-03-29 18:30] MED LIST changes: +HYDR-2214 PO; -HYDR-3240 PO; -OXYC-432 PO; +OXYC1TAB18 PO; +SULF-23 PO; -SULF1TAB24 PO
[2021-03-29 18:32] VITALS: BP 142/98
== END 2021-03-29 18:55 | disposition home or self-care (01) ==
LOC: ED 18:53
DX: M79.644 Pain in right finger(s) (principal); Z48.01 Encounter for change or removal of surgical wound dressing; E11.9 Type 2 diabetes mellitus without complications; I50.9 Heart failure, unspecified
CPT/HCPCS: 99281

== ENCOUNTER 2021-03-30 08:14 | Outpatient (CLI) | payer OTHER | END 2021-03-30 23:59 | disposition home or self-care (01) | LOC: CFH 08:14 | PROVIDERS: ATTEND Family Medicine | DX: Z12.31 Encounter for screening mammogram for malignant neoplasm of breast (principal) | CPT/HCPCS: 77067 ==

== ENCOUNTER 2021-05-17 10:26 | Inpatient (IN) | payer OTHER ==
[~2021-05-17] VITALS: Ht 157.5 cm; Wt 100.1 kg
--- NOTE | 2021-05-17 12:00 | NUR ---
pt w presumed covid, educated son, pt mostly faroese speaking. vss. as
[2021-05-17 12:08] LABS: BASOPHILS % (AUTO) 1 % (0-1); EOSINOPHILS % (AUTO) 0 % (1-7); LYMPHOCYTES % (AUTO) 17 % (22-44); MEAN CORPUSCULAR HEMOGLOBIN 32.3 pg (27.0-34.8); MEAN CORPUSCULAR HGB CONC 34.2 g/dL (32.4-35.8); MEAN PLATELET VOLUME 7.6 fL (7.4-10.4); MONOCYTES % (AUTO) 12 % (2-9); NEUTROPHILS % (AUTO) 69 % (42-75); PLATELET COUNT 248 x10^3/uL (130-400); RED BLOOD COUNT 3.04 x10^6/uL (3.82-5.3); RED CELL DISTRIBUTION WIDTH 13.8 % (9.6-15.2)
[2021-05-17 12:19] LABS: ALANINE AMINOTRANSFERASE 20 U/L (12-78); ANION GAP 9 mmol/L (5-15); CALCIUM 7.8 mg/dL (8.5-10.1); CHLORIDE 94 mmol/L (98-107)
[2021-05-17 12:25] LABS: ALKALINE PHOSPHATASE 79 U/L (45-117); BILIRUBIN,TOTAL 0.4 mg/dL (0.2-1.0); TOTAL PROTEIN 7.2 g/dL (6.4-8.2)
--- NOTE | 2021-05-17 13:00 | NUR ---
pt helped to commode. given pillow. will give tylenol for chronic back pain. as
[2021-05-17] MEDS ORDERED: ACETAMINOPHEN 500 MG TABLET PO ONE (13:30)
[2021-05-17] MEDS ORDERED: ACETAMINOPHEN 500 MG TABLET ONE (13:36)
[2021-05-17] MEDS ORDERED: THIAMINE 100MG TABLET PO ONE (14:00)
--- NOTE | 2021-05-17 14:07 | NUR ---
report to tiarra taylor. as
[2021-05-17] MEDS ORDERED: DARBEPOETIN 100 MCG/ML SQ SCH (14:30)
[2021-05-17] MEDS ORDERED: AMLODIPINE 10 MG TAB PO ONE (14:30)
[2021-05-17 14:36] VITALS: BP 118/62
[2021-05-17] MEDS: HEPARIN 5,000 UNITS/ML, 1ML SQ SCH (16:01)
[2021-05-17] MEDS: CEFTRIAXONE 1,000 MG in DEXTROSE 5% 50 ML IVPB SCH (16:01)
[2021-05-17] MEDS ORDERED: GLIP-142 PO (17:51)
[2021-05-17] MEDS ORDERED: HYDR-3241 PO (17:51)
[2021-05-17] MEDS ORDERED: auryxia (17:51)
[2021-05-17] MEDS ORDERED: INSU100V13 SC (17:51)
[2021-05-17] MEDS ORDERED: TRAZ-175 PO (17:51)
[2021-05-17] MEDS ORDERED: SERT-238 PO (17:51)
[2021-05-17] MEDS ORDERED: SEVE800T28 PO (17:54)
[2021-05-17] MEDS: ASCORBIC ACID 500 MG TABLET PO SCH (18:16)
[2021-05-17] MEDS: CARVEDILOL 25 MG TABLET PO SCH (18:16)
[2021-05-17 19:09] VITALS: BP 149/87
[2021-05-17] MEDS: FERROUS SULFATE 325 MG TABLET PO SCH (19:52)
[2021-05-18] MEDS: HEPARIN 5,000 UNITS/ML, 1ML SQ SCH ×4 (00:01→21:20)
[2021-05-18 00:59] VITALS: BP 114/48
[2021-05-18 05:41] VITALS: BP 126/71
[2021-05-18] MEDS: CARVEDILOL 25 MG TABLET PO SCH ×2 (05:41→16:47)
[2021-05-18 09:00] VITALS: BP 111/62
[2021-05-18] MEDS: ZINC SULFATE 220 MG CAPSULE PO SCH (09:25)
[2021-05-18] MEDS: DEXAMETHASONE 4 MG/ML, 1ML IVPush SCH (09:25)
[2021-05-18] MEDS: CHOLECALCIFEROL 1,000 UNIT TABLET PO SCH (09:25)
[2021-05-18] MEDS: LOSARTAN 100 MG TAB PO SCH (09:25)
[2021-05-18] MEDS: ASCORBIC ACID 500 MG TABLET PO SCH ×2 (09:25→16:47)
[2021-05-18] MEDS: SEVELAMER CARBONATE 800MG TAB PO SCH ×3 (09:26→16:47)
[2021-05-18] MEDS: SERTRALINE 100MG TABLET PO SCH (09:26)
[2021-05-18] MEDS: FERROUS SULFATE 325 MG TABLET PO SCH ×2 (09:27→21:20)
[2021-05-18 14:30] VITALS: BP 123/68
[2021-05-18] MEDS: CEFTRIAXONE 1,000 MG in DEXTROSE 5% 50 ML IVPB SCH (16:47)
[2021-05-18 16:52] VITALS: BP 119/67
[2021-05-18] MEDS ORDERED: TRAZODONE 100MG TABLET PO PRN (21:00)
[2021-05-18 21:27] VITALS: BP 131/66
[2021-05-19 00:30] VITALS: BP 142/58
[2021-05-19] MEDS: HEPARIN 5,000 UNITS/ML, 1ML SQ SCH ×2 (04:40→12:42)
[2021-05-19 05:51] VITALS: BP 146/70
[2021-05-19] MEDS: CARVEDILOL 25 MG TABLET PO SCH (05:52)
[2021-05-19 06:51] LABS: ALBUMIN 3.1 g/dL (3.4-5.0); ANION GAP 15 mmol/L (5-15); CHLORIDE 94 mmol/L (98-107)
[2021-05-19] MEDS: CHOLECALCIFEROL 1,000 UNIT TABLET PO SCH (08:30)
[2021-05-19] MEDS: DEXAMETHASONE 4 MG/ML, 1ML IVPush SCH (08:30)
[2021-05-19] MEDS: FERROUS SULFATE 325 MG TABLET PO SCH (08:30)
[2021-05-19] MEDS: SERTRALINE 100MG TABLET PO SCH (08:30)
[2021-05-19] MEDS: ZINC SULFATE 220 MG CAPSULE PO SCH (08:30)
[2021-05-19] MEDS: LOSARTAN 100 MG TAB PO SCH (08:30)
[2021-05-19] MEDS: ASCORBIC ACID 500 MG TABLET PO SCH (08:30)
[2021-05-19] MEDS: SEVELAMER CARBONATE 800MG TAB PO SCH (08:30)
[2021-05-19] MEDS ORDERED: AZIT250T PO (09:04)
[2021-05-19] MEDS ORDERED: DEXA4TAB66 PO (09:04)
[2021-05-19 11:53] VITALS: BP 116/77
[2021-05-19] MEDS ORDERED: SEVELAMER CARBONATE 800MG TAB PO SCH (12:00)
[2021-05-19 14:06] VITALS: BP 120/70
== END 2021-05-19 17:06 | disposition home health service (06) | DRG 177 ==
LOC: ED 11:04 → EDIP 13:19 → SUATTDRO 13:44 → 3N 14:01
PROVIDERS: ADMIT Hospitalist; ATTEND Hospitalist
PROC: 5A1D70Z Performance of Urinary Filtration, Intermittent, Less than 6 Hours Per Day (ICD-10-PCS; principal; 2021-05-17)
DX: U07.1 COVID-19 (principal); J12.82 Pneumonia due to coronavirus disease 2019; J96.01 Acute respiratory failure with hypoxia; N18.6 End stage renal disease; Z68.41 Body mass index [BMI] 40.0-44.9, adult; E87.1 Hypo-osmolality and hyponatremia; I12.0 Hypertensive chronic kidney disease with stage 5 chronic kidney disease or end stage renal disease; E11.22 Type 2 diabetes mellitus with diabetic chronic kidney disease; D63.1 Anemia in chronic kidney disease; E66.9 Obesity, unspecified; G89.29 Other chronic pain; M89.8X9 Other specified disorders of bone, unspecified site; Z99.2 Dependence on renal dialysis
CPT/HCPCS: 36415; 71045; 80053; 80069; 83605; 84100; 84145; 85025; 86140; 86705; 86706; 87040; 87340; 93005; 96374; G0378; J0696; J0881; J1100; J1644; U0005; U0003